=== PATIENT | female | born 2000 | race Caucasian/White ===

== ENCOUNTER 2019-05-28 14:05 | Inpatient (IN) ==
[2019-05-28] MEDS ORDERED: Lidocaine 1% 20 ML MDV INFILT PRN (14:24)
[2019-05-28] MEDS ORDERED: Famotidine 20 MG/2 ML VIAL IVP PRN (14:24)
[2019-05-28] MEDS ORDERED: Metoclopramide 10 MG/2 ML VIAL IVP PRN (14:24)
[2019-05-28] MEDS ORDERED: Ondansetron 4 MG/2 ML VIAL IVP PRN (14:24)
[2019-05-28] MEDS ORDERED: *HR* Nalbuphine 10 MG/ML AMPUL IVP PRN (14:24)
[2019-05-28] MEDS ORDERED: Naloxone 0.4 MG/ML INJ IVP PRN (14:24)
[2019-05-28] MEDS ORDERED: Penicillin G Potassium 5,000,000 UNIT in 0.9 % Sodium Chloride Mini Bag 100 ML IVPB ONE (14:27)
[2019-05-28] MEDS ORDERED: Ringers Solution, Lactated 1,000 ML IVC SCH (14:30)
[2019-05-28 15:26] LABS: Amphetamine Screen,Urine Negative ng/mL (Cutoff=1000); Barbiturate Screen,Urine Negative ng/mL (Cutoff=200); Benzodiazepines Screen,Urine Negative ng/mL (Cutoff=200); Cannabinoid Screen,Urine Negative ng/mL (Cutoff = 50); Cocaine Screen,Urine Negative ng/mL (Cutoff= 300); Opiate Screen,Urine Negative ng/mL (Cutoff=300); Phencyclidine Screen,Urine Negative ng/mL (Cutoff=25)
[2019-05-28 15:48] LABS: Candida DNA DETECTED (Not Detect); Gardnerella DNA DETECTED (Not Detect); Trichomonas DNA Not Detected (Not Detect)
[2019-05-28] MEDS ORDERED: Penicillin G Potassium 2,500,000 UNIT in 0.9 % Sodium Chloride 100 ML IVPB SCH (18:00)
== END 2019-05-28 16:20 | disposition home or self-care (01) | DRG 833 ==
LOC: 1NENULAB → OBSVTOIN 14:05 → 1NENULAB 14:25
PROVIDERS: ADMIT Advanced Practice Midwife; ATTEND Advanced Practice Midwife

== ENCOUNTER 2019-06-05 06:58 | Inpatient (IN) ==
[2019-06-05] MEDS ORDERED: Naloxone 0.4 MG/ML INJ IVP PRN (07:24)
[2019-06-05] MEDS ORDERED: Famotidine 20 MG/2 ML VIAL IVP PRN (07:24)
[2019-06-05] MEDS ORDERED: Metoclopramide 10 MG/2 ML VIAL IVP PRN (07:24)
[2019-06-05 08:05] LABS: Basophils % 0.3 %; Eosinophils % 0.2 %; Hematocrit 40.7 % (35.3-44.9); Hemoglobin 13.3 g/dL (11.5-15.4); Immature Granulocytes % 0.8 % (0-4); Lymphocytes # 1.2 K/mcL (0.6-4.6); Lymphocytes % 8.9 %; Mean Corpuscular HGB Conc 32.7 g/dL (31.6-35.5); Mean Corpuscular Hemoglobin 27.7 pg (28.0-33.3); Mean Corpuscular Volume 84.8 fL (83.0-100.0); Mean Platelet Volume 10.9 fL (9.4-12.4); Monocytes # 0.6 K/mcL (0.0-1.3); Monocytes % 4.6 %; Neutrophils # 11.3 K/mcL (1.6-8.9); Platelet Count 240 K/mcL (140-400); Red Cell Distribution Width 13.7 % (11.5-14.5); Segmented Neutrophils % 85.2 %; White Blood Count 13.3 K/mcL (4.3-11.1)
[2019-06-05] MEDS ORDERED: Penicillin G Potassium 5,000,000 UNIT in 0.9 % Sodium Chloride Mini Bag 100 ML IVPB ONE (08:25)
[2019-06-05] MEDS ORDERED: *HR* Nalbuphine 10 MG/ML AMPUL IV PRN (08:28)
[2019-06-05] MEDS ORDERED: Oxytocin 20 units/ LR 1000 mL 20 UNIT/1,000 ML BAG IVC SCH (08:30)
[2019-06-05] MEDS: Ringers Solution, Lactated 1,000 ML IVC SCH ×2 (08:57→13:38)
[2019-06-05] MEDS: Ondansetron 4 MG/2 ML VIAL IVP PRN ×2 (08:58→18:40)
[2019-06-05 11:46] LABS: Amphetamine Screen,Urine Negative ng/mL (Cutoff=1000); Barbiturate Screen,Urine Negative ng/mL (Cutoff=200); Benzodiazepines Screen,Urine Negative ng/mL (Cutoff=200); Cannabinoid Screen,Urine Negative ng/mL (Cutoff = 50); Cocaine Screen,Urine Negative ng/mL (Cutoff= 300); Opiate Screen,Urine Negative ng/mL (Cutoff=300); Phencyclidine Screen,Urine Negative ng/mL (Cutoff=25)
[2019-06-05] MEDS: Penicillin G Potassium 2,500,000 UNIT in 0.9 % Sodium Chloride 100 ML IVPB SCH ×3 (13:09→21:12)
[2019-06-05] MEDS: Epidural Premix (fent/bupiv) 110 ML EP SCH ×2 (13:12→19:38)
[2019-06-05] MEDS ORDERED: *HR* FentaNYL (PF) 100 MCG/2 ML VIAL ONE (18:34)
[2019-06-05] MEDS ORDERED: Ropivacaine/PF 0.2% 20 ML VIAL ONE (18:34)
[2019-06-06] MEDS: Epidural Premix (fent/bupiv) 110 ML EP SCH ×2 (01:00→07:40)
[2019-06-06] MEDS: Penicillin G Potassium 2,500,000 UNIT in 0.9 % Sodium Chloride 100 ML IVPB SCH ×3 (01:01→09:52)
[2019-06-06] MEDS: Ringers Solution, Lactated 1,000 ML IVC SCH (01:05)
[2019-06-06] MEDS ORDERED: Lanolin 7 G OINT...G. TP PRN (13:24)
[2019-06-06] MEDS ORDERED: Benzocaine/Menthol 56 GM AEROSOL SPRAY TP PRN (13:24)
[2019-06-06] MEDS ORDERED: *HR* HYDROcodone/Acet 5/325 mg TABLET PO PRN (13:24)
[2019-06-06] MEDS ORDERED: Measles/Mumps/Rubella Vacc 0.5 ML VIAL SQ PRN (13:24)
[2019-06-06] MEDS: Ibuprofen 600 MG TABLET PO PRN ×2 (14:33→20:51)
[2019-06-07] MEDS: Ibuprofen 600 MG TABLET PO PRN ×3 (08:04→21:04)
[2019-06-07] MEDS: Acetaminophen 325 MG TABLET PO PRN ×2 (08:04→15:38)
[2019-06-07] MEDS: Prenatal Vit/FA 1 EACH TABLET PO SCH (08:05)
[2019-06-07] MEDS: cephALEXin 500 MG CAPSULE PO SCH ×2 (08:05→21:04)
[2019-06-07 09:56] LABS: Basophils % 0.3 %; Eosinophils # 0.1 K/mcL (0.0-0.6); Eosinophils % 0.5 %; Hematocrit 30.7 % (35.3-44.9); Immature Granulocytes % 0.8 % (0-4); Lymphocytes # 1.8 K/mcL (0.6-4.6); Lymphocytes % 13.4 %; Mean Corpuscular HGB Conc 33.9 g/dL (31.6-35.5); Mean Corpuscular Hemoglobin 28.6 pg (28.0-33.3); Mean Corpuscular Volume 84.3 fL (83.0-100.0); Mean Platelet Volume 10.9 fL (9.4-12.4); Monocytes % 7.6 %; Neutrophils # 10.4 K/mcL (1.6-8.9); Platelet Count 178 K/mcL (140-400); Red Blood Count 3.64 M/mcL (3.82-4.97); Segmented Neutrophils % 77.4 %; White Blood Count 13.5 K/mcL (4.3-11.1)
[2019-06-07 09:58] LABS: Hemoglobin 10.4 g/dL (11.5-15.4)
[2019-06-07] MEDS ORDERED: Methylergonovine 0.2 MG/ML AMPUL IM ONE (10:07)
[2019-06-08] MEDS: Ringers Solution, Lactated 1,000 ML IVC SCH (07:25)
[2019-06-08] MEDS: Oxytocin 20 units/ LR 1000 mL 20 UNIT/1,000 ML BAG IVC SCH (07:25)
[2019-06-08] MEDS: Penicillin G Potassium 2,500,000 UNIT in 0.9 % Sodium Chloride 100 ML IVPB SCH (07:25)
[2019-06-08 07:59] VITALS: BP 115/77
[2019-06-08] MEDS: cephALEXin 500 MG CAPSULE PO SCH (08:31)
[2019-06-08] MEDS: Prenatal Vit/FA 1 EACH TABLET PO SCH (08:31)
[2019-06-08] MEDS: Ibuprofen 600 MG TABLET PO PRN (12:04)
== END 2019-06-08 13:20 | disposition home or self-care (01) | DRG 768 ==
LOC: 1NENULAB → 1NENUOBS 06-06 13:10
PROVIDERS: ADMIT Advanced Practice Midwife; ATTEND Advanced Practice Midwife